=== PATIENT | female | born 1945 | race Caucasian/White ===

== ENCOUNTER → 2016-04-05 | Outpatient (CLI) | payer MEDICARE, OTHER ==
[~2016-04-05] MED LIST: ACHD5005 PO; AMLO10TA82 PO; AMLO1TAB15 PO; ASP81TEC PO; CLOP75TA PO; DOCU100T7 PO; ERGO400C PO; EZET10TA5 PO; FENO160T PO; FERR-57 PO; GBPN300C PO; LANS30TA4 PO; LISI30TA64 PO; RIVA20TA2 PO; TRM50T PO; VALS320T8 PO; VIVELLE DOT TD; [UNRECOGNIZED DRUG - OTHER] PO; aspirin PO
--- NOTE | 2016-04-05 13:22 | Diagnostic Imaging Report ---
PROCEDURE: US Thyroid. TECHNIQUE: Multiple real-time grayscale images were obtained of the thyroid in various projections. INDICATION: Secondary hyperparathyroidism. There are no previous thyroid ultrasound examinations available for comparison. Reportedly, the patient did undergo a surgical procedure involving the right lobe of the thyroid in 2011. FINDINGS: On this exam, there is thyroid tissue in the thyroid bed on the right. This area measures 3.3 x 0.8 x 1.1 cm (normal gland size 4-5 x 2 x 2 cm or less). The thyroid tissue in the right lobe is fairly homogeneous. The left lobe of the thyroid does contain multiple areas of diminished echogenicity. The largest of these is in the inferior pole and measures 1.5 x 1.2 x 0.9 cm. These hypoechoic areas are of uncertain etiology, but this appearance could be secondary to a multinodular goiter. The possibility that the largest hypoechoic area in the inferior pole is neoplastic would be unlikely. Even so, a nuclear medicine thyroid scan would be recommended for further study. The left lobe of the thyroid itself is not enlarged measuring 4.0 x 1.4 x 1.4 cm. IMPRESSION: 1. There are multiple hypoechoic lesions within the left lobe. These are nonspecific in appearance. These findings are more likely due to a multinodular goiter than to neoplasm. Even so, a nuclear medicine thyroid scan would be recommended for further evaluation of the 1.5 x 1.2 x 0.9 cm lesion in the inferior pole of the left lobe. 2. There does appear to be thyroid tissue in the bed of the right lobe. Correlation with the patient's surgical history would be recommended. Dictated by: Dictated on workstation # [id number]
== END ==
LOC: RAD 11:52
PROVIDERS: ATTEND Internal Medicine Endocrinology, Diabetes & Metabolism
DX: N25.81 Secondary hyperparathyroidism of renal origin (principal)
CPT/HCPCS: 76536

== ENCOUNTER → 2017-02-19 | Outpatient (CLI) | payer MEDICARE, OTHER ==
--- NOTE | 2017-02-19 15:15 | Diagnostic Imaging Report ---
EXAMINATION: Left lower extremity duplex venous ultrasound. TECHNIQUE: DVT protocol. Multiple sonographic images with color Doppler and waveform interrogation were performed of the left lower extremity veins with compression and augmentation maneuvers. INDICATION: Left leg pain. FINDINGS: The left lower extremity veins from the groin to below the knee veins were examined with normal color-flow, compressibility and waveform demonstrated. The great saphenous vein is patent. IMPRESSION: No evidence of DVT in the left lower extremity. Dictated by: Dictated on workstation # [id number]
== END ==
LOC: RAD 14:34
PROVIDERS: ATTEND Nurse Practitioner Family
DX: M79.605 Pain in left leg (principal)

== ENCOUNTER → 2017-04-11 | Outpatient (CLI) | payer MEDICARE, OTHER ==
[~2017-04-11] MED LIST changes: +LIDOCAINE 2% 20 ML (XYLOCAINE) VIAL ONE
--- NOTE | 2017-04-11 12:44 | Diagnostic Imaging Report ---
Indication: Left lower pole thyroid nodule. Patient presents for fine-needle aspiration. Patient was brought to the procedure room and placed on the bed in the supine position. Ultrasound imaging over the neck was performed to evaluate the appropriate entry site. A total of 3 passes were made into the hypoechoic mass in the lower pole of the left lobe of the thyroid with a 25-gauge needle. Fine-needle aspiration was performed and sent to cytology. Hemostasis was obtained using manual compression. The patient tolerated the procedure well. IMPRESSION: Successful ultrasound-guided fine-needle aspiration of the hypoechoic nodule in the lower pole of the left lobe of the thyroid. Pathology results are currently pending. Dictated by: Dictated on workstation # [id number]
--- NOTE | 2017-04-11 13:46 | Diagnostic Imaging Report ---
PROCEDURE: US Thyroid. TECHNIQUE: Multiple real-time grayscale images were obtained of the thyroid in various projections. INDICATION: Left thyroid nodule. COMPARISON: Comparison is made with prior thyroid ultrasound from 04/05/2016. FINDINGS: Postsurgical changes to the right lobe of the thyroid are noted. There is some residual thyroid tissue on the right measuring 2.3 x 0.8 x 1.1 cm. No mass is detected. The left lobe measures 4.8 x 2.2 x 1.4 cm. There is a hypoechoic nodule in the lower pole of the left lobe, similar to prior exam measuring 0.9 x 1.5 x 1.2 cm. No new thyroid mass is detected. No definite parathyroid mass is detected. IMPRESSION: Stable hypoechoic mass lower pole left lobe of the thyroid when compared with examination one year earlier. Dictated by: Dictated on workstation # [id number]
== END ==
LOC: RAD 09:44
PROVIDERS: ATTEND Surgery
DX: E04.1 Nontoxic single thyroid nodule (principal)
CPT/HCPCS: 76536; 76942

== ENCOUNTER 2017-04-27 14:00 | Outpatient (CLI) | payer MEDICARE, OTHER ==
[~2017-04-27] VITALS: Ht 144.8 cm; Wt 68.0 kg
[~2017-04-27 14:00] MED LIST changes: -LIDOCAINE 2% 20 ML (XYLOCAINE) VIAL ONE
[2017-04-27] MEDS ORDERED: GABA-486 PO (14:41)
[2017-04-27] MEDS ORDERED: FURO20TA4 PO (14:41)
[2017-04-27] MEDS ORDERED: PRD20T PO (14:41)
[2017-04-27] MEDS ORDERED: POTA10TA10 PO (14:41)
[2017-04-27] MEDS ORDERED: HYDR50TA76 PO (14:41)
[2017-04-27] MEDS ORDERED: DILT180C54 PO (14:41)
[2017-04-27] MEDS ORDERED: ASPI-999 PO (14:41)
[2017-04-27] MEDS ORDERED: LOSA100T28 PO (14:41)
[2017-04-27] MEDS ORDERED: DILT30TA PO (14:41)
[2017-04-27] MEDS ORDERED: BIOT5000 PO (14:41)
[2017-04-27] MEDS ORDERED: DOCU100T2 PO (14:41)
[2017-04-27] MEDS ORDERED: RIVA15TA PO (14:41)
[2017-04-27] MEDS ORDERED: OMEP20CA12 PO (14:41)
== END 2017-04-27 14:44 ==
LOC: PREOP 14:00
PROVIDERS: ATTEND Surgery
DX: Z01.818 Encounter for other preprocedural examination (principal); E04.1 Nontoxic single thyroid nodule

== ENCOUNTER 2017-05-02 06:17 | Observation (INO) | payer MEDICARE, OTHER ==
[~2017-05-02] VITALS: Ht 144.8 cm; Wt 68.0 kg
[2017-05-02] VITALS (17 sets, daily range): BP systolic 153–189; BP diastolic 72–92
[~2017-05-02 06:17] MED LIST changes: +ASPI-999 PO; +BIOT5000 PO; +DILT180C54 PO; +DILT30TA PO; +DOCU100T2 PO; +FURO20TA4 PO; +GABA-486 PO; +HYDR50TA76 PO; +LOSA100T28 PO; +OMEP20CA12 PO; +POTA10TA10 PO; +PRD20T PO; +RIVA15TA PO
--- OUTSIDE RECORDS SUMMARY | 2017-05-02 06:20 | XMS REPORT | Continuity of Care Document ---
Author Author [facility] Organization [facility] Address Unknown Phone Unavailable Allergies Active Description Code Type Severity Reaction Onset Reported/Identified Relationship to Patient Clinical Status Yes latex [id number] Drug Allergy Unknown RASH 07/09/2012 Yes Penicillins [id number] Drug Allergy Unknown RASH 07/09/2012 Yes codeine [id number] Drug Allergy Mild NAUSEA 07/18/2012 Medications There is no data. Problems Date Dx Coded Attending Type Code Diagnosis Diagnosed By 07/19/2012 CARLITA ROBERSON MD Ot 227.1 BENIGN GABINO PARATHYROID 07/19/2012 CARLITA ROBERSON MD Ot 252.01 PRIMARY HYPERPARATHYROIDISM 07/19/2012 CARLITA ROBERSON MD Ot 275.42 HYPERCALCEMIA 07/19/2012 CARLITA ROBERSON MD Ot 401.9 HYPERTENSION NOS 07/19/2012 CARLITA ROBERSON MD Ot V45.82 PERCUTANEOUS TRANSLUM CORON ANGIOPLASTY 07/19/2012 CARLITA ROBERSON MD Ot V45.89 POSTSURGICAL STATES NEC 07/19/2012 CARLITA ROBERSON MD Ot V58.66 LONG-TERM (CURRENT) USE OF ASPIRIN 07/19/2012 CARLITA ROBERSON MD Ot V58.69 OTH MED,LT,CURRENT USE 05/06/2014 STEPHANIE DOWLING MD Ot 733.00 01/04/2015 STEPHANIE DOWLING MD Ot M81.0 01/04/2015 STEPHANIE DOWLING MD Ot Z12.31 01/05/2015 Ot 793.82 01/05/2015 Ot V76.12 01/05/2015 Ot 252.00 01/05/2015 Ot 733.00 01/05/2015 Ot V49.81 01/05/2015 Ot V76.12 01/05/2015 Ot 733.00 01/05/2015 CARLITA ROBERSON MD Ot 784.2 01/05/2015 CARLITA ROBERSON MD Ot V72.63 01/05/2015 KAROL HENDRICKS, CARLITA Kaur Ot V74.8 01/05/2015 KAROL HENDRICKS, CARLITA Kaur Ot 252.9 01/05/2015 KAROL HENDRICKS, CARLITA Kaur Ot 780.79 01/05/2015 NITESH HENDRICKS, STEPHANIE A Ot 733.00 01/05/2015 NITESH HENDRICKS, STEPHANIE A Ot V76.12 01/05/2015 NEELAM MATTHEWSP Ot V76.12 01/05/2015 NITESH HENDRICKS, STEPHANIE A Ot 733.00 01/05/2015 NITESH HENDRICKS, STEPHANIE A Ot M81.0 01/05/2015 NITESH HENDRICKS, STEPHANIE A Ot Z12.31 01/26/2015 NIETSH HENDRICKS, STEPHANIE A Ot M81.0 01/26/2015 NITESH HENDRICKS, STEPHANIE A Ot Z12.31 02/03/2015 NITESH HENDRICKS, STEPHANIE A Ot M81.0 02/03/2015 NITESH HENDRICKS, STEPHANIE A Ot Z12.31 01/04/2016 Ot 793.82 INCONCLUSIVE MAMMOGRAM 01/04/2016 Ot V76.12 OTH SCREEN MAMMO-MALIGN NEOPLASM OF DALY 01/04/2016 Ot 252.00 HYPERPARATHYROIDISM, UNSPECIFIED 01/04/2016 Ot 733.00 OSTEOPOROSIS NOS 01/04/2016 Ot V49.81 ASYMPT POSTMENOPAUSAL STATUS (AGE-RELATE 01/04/2016 Ot V76.12 OTH SCREEN MAMMO-MALIGN NEOPLASM OF DALY 01/04/2016 Ot 733.00 OSTEOPOROSIS NOS 01/04/2016 KAROL HENDRICKS, CARLITA Kaur Ot 784.2 SWELLING IN HEAD NECK 01/04/2016 KAROL HENDRICKS, CARLITA Kaur Ot V72.63 PRE-PROCEDURAL LABORATORY EXAMINATION 01/04/2016 KAROL HENDRICKS, CARLITA Kaur Ot V74.8 SCREEN-BACTERIAL DIS NEC 01/04/2016 KAROL HENDRICKS, CARLITA Kaur Ot 252.9 PARATHYROID DISORDER NOS 01/04/2016 KAROL HENDRICKS, CARLITA Kaur Ot 780.79 OTH MALAISE FATIGUE 01/04/2016 NITESH HENDRICKS, STEPHANIE A Ot 733.00 OSTEOPOROSIS NOS 01/04/2016 NITESH HENDRICKS, STEPHANIE A Ot V76.12 OTH SCREEN MAMMO-MALIGN NEOPLASM OF DALY 01/04/2016 MATTHEWS, NEELAM M EDUCATIONAL INTERPRETER Ot V76.12 OTH SCREEN MAMMO-MALIGN NEOPLASM OF DALY 01/04/2016 NITESH HNEDRICKS, STEPHANIE Saucedo Ot 733.00 OSTEOPOROSIS NOS 01/04/2016 NITESH HENDRICKS, STEPHANIE Saucedo Ot M81.0 AGE-RELATED OSTEOPOROSIS W/O CURRENT PAT 01/04/2016 STEPHANIE DOWLING MD Ot Z12.31 ENCNTR SCREEN MAMMOGRAM FOR MALIGNANT NE 01/04/2016 NEELAM MATTHEWS EDUCATIONAL INTERPRETER Ot Z12.31 ENCNTR SCREEN MAMMOGRAM FOR MALIGNANT NE 01/04/2016 NEELAM MATTHEWS EDUCATIONAL INTERPRETER Ot Z12.31 ENCNTR SCREEN MAMMOGRAM FOR MALIGNANT NE 01/05/2016 NEELAM MATTHEWS EDUCATIONAL INTERPRETER Ot Z12.31 ENCNTR SCREEN MAMMOGRAM FOR MALIGNANT NE 01/06/2016 NEELAM MATTHEWS EDUCATIONAL INTERPRETER Ot M81.0 AGE-RELATED OSTEOPOROSIS W/O CURRENT PAT 01/18/2016 NEELAM MATTHEWS EDUCATIONAL INTERPRETER Ot Z12.31 ENCNTR SCREEN MAMMOGRAM FOR MALIGNANT NE 01/27/2016 NEELAM MATTHEWS EDUCATIONAL INTERPRETER Ot M81.0 AGE-RELATED OSTEOPOROSIS W/O CURRENT PAT 02/01/2016 NEELAM MATTHEWS EDUCATIONAL INTERPRETER Ot M81.0 AGE-RELATED OSTEOPOROSIS W/O CURRENT PAT 04/05/2016 HERNANDEZ DO, JOSE EDUARDO L Ot N25.81 SECONDARY HYPERPARATHYROIDISM OF RENAL O 04/07/2016 HERNANDEZ DO, JOSE EDUARDO L Ot N25.81 SECONDARY HYPERPARATHYROIDISM OF RENAL O 04/26/2016 HERNANDEZ DO, JOSE EDUARDO L Ot N25.81 SECONDARY HYPERPARATHYROIDISM OF RENAL O 05/03/2016 HERNANDEZ DO, JOSE EDUARDO L Ot N25.81 SECONDARY HYPERPARATHYROIDISM OF RENAL O 01/15/2017 Ot 733.00 OSTEOPOROSIS NOS 01/15/2017 Ot V49.81 ASYMPT POSTMENOPAUSAL STATUS (AGE-RELATE 01/15/2017 Ot V76.12 OTH SCREEN MAMMO-MALIGN NEOPLASM OF DALY 01/15/2017 Ot 733.00 OSTEOPOROSIS NOS 01/15/2017 KAROL HENDRICKS, CARLITA Kaur Ot 784.2 SWELLING IN HEAD NECK 01/15/2017 KAROL HENDRICKS, CARLITA Kaur Ot V72.63 PRE-PROCEDURAL LABORATORY EXAMINATION 01/15/2017 KAROL HENDRICKS, CARLITA Kaur Ot V74.8 SCREEN-BACTERIAL DIS NEC 01/15/2017 KAROL HENDRICKS, CARLITA Kaur Ot 252.9 PARATHYROID DISORDER NOS 01/15/2017 KAROL HENDRICKS, CARLITA Kaur Ot 780.79 OTH MALAISE FATIGUE 01/15/2017 NITESH HENDRICKS, STEPHANIE Saucedo Ot 733.00 OSTEOPOROSIS NOS 01/15/2017 STEPHANIE DOWLING MD Ot V76.12 OTH SCREEN MAMMO-MALIGN NEOPLASM OF DALY 01/15/2017 NEELAM MATTHEWSP Ot V76.12 OTH SCREEN MAMMO-MALIGN NEOPLASM OF DALY 01/15/2017 STEPHANIE DOWLING MD Ot 733.00 OSTEOPOROSIS NOS 01/15/2017 NITESH HENDRICKS, STEPHANIE Saucedo Ot M81.0 AGE-RELATED OSTEOPOROSIS W/O CURRENT PAT 01/15/2017 STEPHANIE DOWLING MD Ot Z12.31 ENCNTR SCREEN MAMMOGRAM FOR MALIGNANT NE 01/15/2017 NEELAM MATTHEWSP Ot M81.0 AGE-RELATED OSTEOPOROSIS W/O CURRENT PAT 01/15/2017 NEELAM MATTHEWS EDUCATIONAL INTERPRETER Ot Z12.31 ENCNTR SCREEN MAMMOGRAM FOR MALIGNANT NE 01/15/2017 JOSE EDUARDO HERNANDEZ DO Ot N25.81 SECONDARY HYPERPARATHYROIDISM OF RENAL O 01/16/2017 ARNAV ZAVALA CARPENTERS Ot Z12.31 ENCNTR SCREEN MAMMOGRAM FOR MALIGNANT NE 02/06/2017 ARNAV ZAVALA CARPENTERS Ot Z12.31 ENCNTR SCREEN MAMMOGRAM FOR MALIGNANT NE 02/25/2017 NEELAM MATTHEWS EDUCATIONAL INTERPRETER Ot M79.605 PAIN IN LEFT LEG 03/14/2017 NEELAM MATTHEWS EDUCATIONAL INTERPRETER Ot M79.605 PAIN IN LEFT LEG 03/20/2017 NEELAM MATTHEWS EDUCATIONAL INTERPRETER Ot M79.605 PAIN IN LEFT LEG 04/12/2017 KAROL HENDRICKS, CARLITA Kaur Ot E04.1 NONTOXIC SINGLE THYROID NODULE Procedures Code Description Performed By Performed On OTHER PARATHYROIDECTOMY 07/17/2012 Results There is no data. Encounters ACCT No. Visit Date/Time Discharge Status Pt. Type Provider Facility Loc./Unit Complaint [id number] 04/11/2017 09:44:00 04/11/2017 23:59:59 CLS Outpatient CARLITA ROBERSON MD [facility] RAD LEFT THYROID NODULE [id number] 03/02/2017 12:11:00 03/02/2017 23:59:59 CLS Preadmit JOSE EDUARDO HERNANDEZ DO [facility] RAD VITAMIN D DEFICIECY [id number] 02/19/2017 14:34:00 02/19/2017 23:59:59 CLS Outpatient NEELAM MATTHEWS EDUCATIONAL INTERPRETER [facility] RAD L CALF PAIN, SWELLING [id number] 01/15/2017 14:38:00 01/15/2017 23:59:59 CLS Outpatient ARNAV ZAVALA APRN [facility] RAD SCREENING [id number] 04/05/2016 11:52:00 04/05/2016 23:59:59 CLS Outpatient JOSE EDUARDO HERNANDEZ DO [facility] RAD SECONDARY HYPERPARATHYROIDISM [id number] 01/04/2016 12:22:00 01/04/2016 23:59:59 CLS Outpatient NEELAM MATTHEWS EDUCATIONAL INTERPRETER [facility] RAD SCREENING [id number] 01/04/2016 12:15:00 01/04/2016 23:59:59 CLS Outpatient NEELAM MATTHEWS EDUCATIONAL INTERPRETER [facility] M81.0 [id number] 12/31/2014 11:18:00 12/31/2014 23:59:59 CLS Outpatient STEPHANIE DOWLING MD [facility] RAD SCREENING, OSTEOPOROSIS [id number] 01/07/2014 13:07:00 01/07/2014 23:59:59 CLS Outpatient STEPHANIE DOWLING MD [facility] OSTEOPOROSIS [id number] 12/23/2013 11:05:00 12/23/2013 23:59:59 CLS Outpatient NEELAM MATTHEWS EDUCATIONAL INTERPRETER [facility] RAD SCREENING [id number] 11/15/2012 12:09:00 11/15/2012 23:59:59 CLS Outpatient STEPHANIE DOWLING MD [facility] OSTEOPOROSIS, SCREENING [id number] 07/30/2012 17:09:00 07/30/2012 23:59:59 CLS Outpatient CARLITA ROBERSON MD [facility] LAB PARATHYROID,FATIGUE [id number] 07/17/2012 06:10:00 07/19/2012 10:25:00 DIS Inpatient CARLITA ROBERSON MD [facility] SURGICAL ENLARGED PARATHYROID [id number] 07/09/2012 08:53:00 07/09/2012 23:59:59 CLS Outpatient CARLITA ROBERSON MD [facility] PREOP ENLARGED PARATHYOID [id number] 10/30/2011 13:10:00 Document Registration [id number] 10/13/2011 10:15:00 Document Registration [id number] 06/27/2011 08:23:00 Document Registration [id number] 08/30/2010 09:19:00 Document Registration
[2017-05-02] MEDS ORDERED: VANCOMYCIN INJECTION 1,000 MG in NS (IVPB) 250 ML IV ONE (06:30)
[2017-05-02] MEDS ORDERED: CATHETER FLUSH 10 ML SYR IV PRN (06:45)
[2017-05-02] MEDS ORDERED: proPOfol 200 MG/20 ML (DIPRIVAN) VIAL IV ONE (06:51)
[2017-05-02] MEDS ORDERED: LIDOCAINE PF 2% 5 ML (XYLOCAINE) VIAL ONE (06:51)
[2017-05-02] MEDS ORDERED: ONDANSETRON 4 MG/2 ML (SDV) Z0FRAN ONE (06:51)
[2017-05-02] MEDS ORDERED: DEXAMETHASONE 10 MG/ML (DECADRON) 1 ML VIAL ONE (06:51)
[2017-05-02] MEDS ORDERED: SUCCINYLCHOLINE INJ 100 MG/5 ML SYR ONE (06:51)
[2017-05-02] MEDS ORDERED: fentaNYL INJECTION 100 MCG/2 ML AMP ONE (06:52)
[2017-05-02] MEDS ORDERED: MIDAZOLAM 2 MG/2 ML (VERSED) VIAL ONE (06:52)
[2017-05-02] MEDS ORDERED: FAMOTIDINE 20MG/2ML IV (PEPCID) IV ONE (07:00)
[2017-05-02] MEDS ORDERED: SCOPOLAMINE 1.5 MG (TRANSDERM-SCOP) PATCH TOP ONE (07:00)
[2017-05-02] MEDS ORDERED: ONDANSETRON 4 MG/2 ML (SDV) Z0FRAN IV ONE (07:00)
[2017-05-02] MEDS ORDERED: BUP/EPI 0.5% 1:200,000 (SENSORCAINE) 30 ML VIAL ONE (07:12)
[2017-05-02] MEDS ORDERED: THROMBIN SPRAY KIT 5,000 UNIT VIAL ONE (07:12)
[2017-05-02] MEDS: LACTATED RINGERS 1,000 ML IV PRN ×2 (07:15→09:53)
--- NOTE | 2017-05-02 08:09 | Progress Note-Pre Operative ---
Pre-Operative Progress Note H&P Reviewed The H&P was reviewed, patient examined and no changes noted. 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
[2017-05-02] MEDS ORDERED: ONDANSETRON 4 MG/2 ML (SDV) Z0FRAN IVP PRN ×2 (09:15→11:00)
[2017-05-02] MEDS ORDERED: MEPERIDINE (DEMEROL) INJ 50 MG/ML IVP PRN (09:15)
[2017-05-02] MEDS ORDERED: morphine INJ 10 MG/ML 1ML (SYR OR VIAL) IVP PRN (09:15)
[2017-05-02] MEDS ORDERED: morphine INJ 10 MG/ML 1ML (SYR OR VIAL) ONE (09:16)
[2017-05-02] MEDS ORDERED: SEVOFLURANE (ULTANE) 15 ML INHAL SOLN ONE ×2 (10:13→10:28)
--- NOTE | 2017-05-02 10:46 | Operative Report ---
Operative Report Date of Procedure/Surgery May 02, 2017 Surgeon (s) CARLITA ROBERSON MD Train Brake Operator (s): N/A Post-Operative Diagnosis Atypical parathyroid neoplasm Procedure Performed Left hemithyroidectomy with frozen section analysis Excision of left inferior parathyroid adenoma Intraoperative nerve monitoring Description of Procedure Anesthesia Type: General Estimated blood loss (mL): 25 mL Specimen(s) collected/removed Left lobe of thyroid with a nodule. Left inferior parathyroid Description of the Procedure Indication for the procedure: This lady had undergone excision of a solitary right parathyroid adenoma in 2012. Completion of the excision was confirmed by intraoperative PTH assay. She presented with severe hypercalcemia and mental's status changes 2 months ago. Following adjustment of her medications and intravenous fluids, her calcium has normalized. During to get evaluation, a 1.5 cm left parotid nodule became apparent. Fine-needle aspiration confirmed a follicular neoplasm. Therefore, she was offered hemithyroidectomy to establish a definitive diagnosis. The potential for finding and that the parathyroid adenoma on the left side, leading to excision was highlighted. With regard to the operative procedure, expected recovery, intraoperative complications of hematoma, hoarseness of voice and severe hypocalcemia were discussed with her. Informed consent was obtained. Description of the procedure: She was placed supine on the operating table and general anesthesia induced. A gram of Ancef was administered intravenously as prophylaxis against wound infection sequential compression devices were placed around her legs, to minimize the risk of venous thrombosis. Her neck and upper chest were prepared and draped in the usual sterile manner. Pre-emptive analgesia was established using 0.5 percent Marcaine with epinephrine. A 3 cm incision was made along the previous scar and platysma incised transversely. Flaps were raised superiorly to the level of the thyroid cartilage and inferiorly to the sternal notch. Strap muscles were retracted laterally, displaying the left lobe of the thyroid with a hard nodule along the inferior aspect, medially. Superior thyroid artery was controlled between 2-0 silk sutures, reinforced with a Ligaclip. Branches of the inferior thyroid artery were controlled using a combination and ligated clips and Harmonic scalpel. The recurrent laryngeal nerve was identified and kept out of harm's way by constant visual inspection and intermittent stimulation using standard technique. As this process underway, and abnormal-looking parathyroid tissue possibly inferior in location came into view. It measured at least 7 mm in size and therefore was excised and sent for frozen section. The pathologist confirmed parathyroid tissue, requiring additional histologic evaluation. The isthmus was divided using Harmonic scalpel. I was able to identify and preserve what appeared to be left superior parathyroid tissue and preserve its blood supply. Left lobe was then excised completely and sent for frozen section. The pathologist reported atypical parathyroid tissue within the nodule along the inferior aspect of the thyroid lobe. 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 Hemostasis was optimized using careful use of ligated clips, keeping the recurrent laryngeal nerve in view constantly. We had the DEVELOPER AUTOMATIC conduct Valsalva maneuver, looking for any venous bleeding. There wasn't any. Gelfoam, soaked in thrombin solution was placed along the tracheo-esophageal groove, to optimize hemostasis. Neck was then flexed, in preparation for closure. Cervical fascia was approximated using 2-0 Vicryl followed by platysma being approximated with 3-0 Vicryl. Skin was closed using 4-0 Vicryl, in a subcuticular fashion. She tolerated the procedure well, was extubated in the operating room and taken to the recovery room in a stable condition. Findings of the Procedure See op report Allergies and Home Medications Allergies Coded Allergies: Penicillins (Unverified Allergy, Unknown, RASH, 04/27/17) cinacalcet (Verified Allergy, Unknown, ANAPHYLAXIS, 04/27/17) latex (Unverified Allergy, Unknown, RASH, 04/27/17) ITCHY codeine (Unverified Adverse Reaction, Mild, NAUSEA, 07/18/12) Home Medications Aspirin 81 Mg Tab.chew, 81 MG PO DAILY, (Reported) Biotin 5,000 Mcg Tab.rapdis, 5,000 MCG PO DAILY, (Reported) Diltiazem HCl 30 Mg Tablet, 30 MG PO HS, (Reported) Diltiazem HCl 180 Mg Cap.er.24h, 180 MG PO DAILY, (Reported) Docusate Sodium 100 Mg Tablet, 200 MG PO DAILY, (Reported) take 2 (100mg) tabs Furosemide 20 Mg Tablet, 20 MG PO DAILY, (Reported) Gabapentin 100 Mg Capsule, 100 MG PO BID, (Reported) Hydroxyzine HCl 50 Mg Tablet, 50 MG PO BID, (Reported) Losartan Potassium 100 Mg Tablet, 100 MG PO DAILY, (Reported) Omeprazole 20 Mg Capsule.dr, 20 MG PO BID, (Reported) Potassium Chloride 10 Meq Tablet.er, 10 MEQ PO DAILY, (Reported) Prednisone 20 Mg Tab, 20 MG PO BID for 5 Days, (Reported) Rivaroxaban 15 Mg Tablet, 15 MG PO DAILY, (Reported) CARLITA ROBERSON MD May 02, 2017 10:46 am
[2017-05-02] MEDS ORDERED: LACTATED RINGERS 1,000 ML IV SCH (10:47)
[2017-05-02] MEDS ORDERED: fentaNYL INJECTION 100 MCG/2 ML AMP IVP PRN (11:00)
[2017-05-02] MEDS ORDERED: HYDROcodone/APAP 5 MG/325 MG (LORTAB) TAB PO PRN (11:00)
[2017-05-02] MEDS ORDERED: ENALAPRILAT 2.5 MG/2 ML (VASOTEC) VIAL IV PRN (13:15)
[2017-05-02] MEDS ORDERED: DILTIAZEM 180 MG (CARDIZEM CD) CAP PO ONE (17:21)
[2017-05-02] MEDS ORDERED: LOSARTAN 100 MG (COZAAR) TABLET ONE (17:21)
[2017-05-02] MEDS ORDERED: ENALAPRILAT 2.5 MG/2 ML (VASOTEC) VIAL IV NR (17:30)
[2017-05-02] MEDS: predniSONE 20 MG TAB PO SCH (17:32)
[2017-05-02] MEDS: LOSARTAN 100 MG (COZAAR) TABLET PO SCH (17:32)
[2017-05-02] MEDS: DILTIAZEM 180 MG (CARDIZEM CD) CAP PO SCH (17:32)
[2017-05-02] MEDS: GABAPENTIN 100 MG (NEURONTIN) CAP PO SCH (20:15)
[2017-05-02] MEDS: DILTIAZEM 30 MG (CARDIZEM) TAB PO SCH (20:15)
[2017-05-03] VITALS (10 sets, daily range): BP systolic 131–167; BP diastolic 59–77
[2017-05-03 03:48] LABS: CALCIUM 8.8 MG/DL (8.5-10.1); CREATININE SERUM 0.99 MG/DL (0.60-1.30); POTASSIUM 4.6 MMOL/L (3.6-5.0)
[2017-05-03] MEDS: predniSONE 20 MG TAB PO SCH ×2 (06:42→17:08)
--- NOTE | 2017-05-03 08:13 | Consultation ---
History of Present Illness History of Present Illness Patient Consulted On(ladi/time) 05/03/17 08:06 Date Seen by Provider: May 03, 2017 Time Seen by Provider: 08:06 Reason for Visit: PARATHYROID TUMOR History of Present Illness PT IS A 72 Y/O FEMALE WHO IS KNOWN TO ME FROM CLINIC. SHE HAS A REMOTE HISTORY OF PARATHYROID TUMOR WITH REMOVAL OF THE AFFECTED PARATHYROIDS. UPON USUAL LAB MONITORING, IT WAS DISCOVERED THAT HER PARATHYROID HORMONE LEVELS HAVE BEEN ELEVATED, IMAGING WAS PERFORMED AND PT WAS REFERRED TO DR. ROBERSON FOR FURTHER EVALUATION, A BIOPSY OF ENSUED AND IT WAS DISCOVERED THAT THE PT HAD A POSSIBLE FOLLICULAR NEOPLASM, THUS SURGICAL REMOVAL WAS PLANNED FOR 05/02/17. Allergies and Home Medications Allergies Coded Allergies: Penicillins (Unverified Allergy, Unknown, RASH, 04/27/17) cinacalcet (Verified Allergy, Unknown, ANAPHYLAXIS, 04/27/17) latex (Unverified Allergy, Unknown, RASH, 04/27/17) ITCHY codeine (Unverified Adverse Reaction, Mild, NAUSEA, 07/18/12) Home Medications Aspirin 81 Mg Tab.chew, 81 MG PO DAILY, (Reported) Biotin 5,000 Mcg Tab.rapdis, 5,000 MCG PO DAILY, (Reported) Diltiazem HCl 30 Mg Tablet, 30 MG PO HS, (Reported) Diltiazem HCl 180 Mg Cap.er.24h, 180 MG PO DAILY, (Reported) Docusate Sodium 100 Mg Tablet, 200 MG PO DAILY, (Reported) take 2 (100mg) tabs Furosemide 20 Mg Tablet, 20 MG PO DAILY, (Reported) Gabapentin 100 Mg Capsule, 100 MG PO BID, (Reported) Hydroxyzine HCl 50 Mg Tablet, 50 MG PO BID, (Reported) Losartan Potassium 100 Mg Tablet, 100 MG PO DAILY, (Reported) Omeprazole 20 Mg Capsule.dr, 20 MG PO BID, (Reported) Potassium Chloride 10 Meq Tablet.er, 10 MEQ PO DAILY, (Reported) Prednisone 20 Mg Tab, 20 MG PO BID for 5 Days, (Reported) Rivaroxaban 15 Mg Tablet, 15 MG PO DAILY, (Reported) Past Gfoqzpx-Hlppvs-Jpbalt Hx Patient Social History Alcohol Use: Denies Use Recreational Drug Use: No Smoking Status: Never a Smoker 2nd Hand Smoke Exposure: No Recent Foreign Travel: No Contact w/Someone Who Travel: No Recent Infectious Disease Expo: No Recent Hopitalizations: No Physical Abuse: No Sexual Abuse: No Mistreated: No Fear: No Immunizations Up To Date Tetanus Booster (TDap): Unknown PED Vaccines UTD: No Seasonal Allergies Seasonal Allergies: No Surgeries History of Surgeries: Yes Surgeries: Appendectomy, Section, Coronary Stent, Parathyroidectomy Respiratory History of Respiratory Disorde: Yes Respiratory Disorders: Pneumonia, COPD Currently Using CPAP: No Currently Using BIPAP: No Cardiovascular History of Cardiac Disorders: Yes Cardiac Disorders: Coronary Artery Disease, Hypertension Neurological History of Neurological Disord: No Reproductive System : No Hx Reproductive Disorders: No Sexually Transmitted Disease: No HIV/AIDS: No Female Reproductive Disorders: Denies [employer] History: Menopausal Genitourinary History of Genitourinary Disor: No Gastrointestinal History of Gastrointestinal Di: Yes Gastrointestinal Disorders: Gastroesophageal Reflux Musculoskeletal History of Musculoskeletal Dis: Yes Musculoskeletal Disorders: Osteoporosis, Arthritis, Fractures Endocrine History of Endocrine Disorders: Yes Endocrine Disorders: Parathyroid Disease Are Your Blood Sugars Over 250: No HEENT History of HEENT Disorders: Yes HEENT Disorders: Cataract Loss of Vision: Denies Hearing Impairment: Denies Psychosocial History of Psychiatric Problem: Yes Behavioral Health Disorders: Depression Integumentary History of Skin or Integumenta: No Blood Transfusions History of Blood Disorders: No Adverse Reaction to a Blood Tr: No Reviewed Nursing Assessment Reviewed/Agree w Nursing PMH: Yes Family Medical History Significant Family History: Heart Disease, Hypertension Review of Systems-General Constitutional: No chills, No fever, malaise, No weakness EENTM: No hoarseness, No throat pain Respiratory: No cough, No dyspnea on exertion Cardiovascular: No chest pain, edema, No palpitations Gastrointestinal: No abdominal pain, No constipation, No diarrhea, No loss of appetite Genitourinary: no symptoms reported : No Musculoskeletal: back pain, muscle weakness Skin: no symptoms reported Psychiatric/Neurological: Denies Anxiety, Denies Depressed All Other Systems Reviewed Negative Unless Noted: Yes Physical Exam-General Problems Physical Exam Vital Signs Vital Signs - First Documented 05/02/17 06:40 Temp 98.5 Pulse 76 Resp 18 B/P (MAP) 186/79 (114) Pulse Ox 94 O2 Delivery Room Air Capillary Refill : General Appearance: WD/WN, no apparent distress Eyes: Bilateral Eye Normal Inspection, Bilateral Eye PERRL, Bilateral Eye EOMI HEENT: PERRL/EOMI, normal ENT inspection, TMs normal, pharynx normal Neck: non-tender, supple, other (surgical incision steri strips in place) Respiratory: chest non-tender, lungs clear, normal breath sounds, no respiratory distress, no accessory muscle use Cardiovascular: regular rate, rhythm, systolic murmur Gastrointestinal: normal bowel sounds, non tender, soft, no organomegaly Back: normal inspection Extremities: normal range of motion, non-tender, normal inspection, normal capillary refill Neurologic/Psychiatric: retanner II-XII nml as tested, alert, normal mood/affect, oriented x 3 Skin: warm/dry Assessment/Plan Assessment/Plan Admission Diagnosis/Plan PARATHYROID TUMOR HYPERTENSION CHRONIC STAGE 3 RENAL FAILURE ESOPHAGEAL REFLUX HX OF [place] FILTER CHRONIC ANTICOAGULATION PARATHYROID TUMOR - POST OP PARATHYROIDECTOMY DAY #1 HYPERTENSION - CHRONIC - RESTART HOME MEDICATION - PT HAS BEEN VERY DIFFICULT TO TREAT DUE TO INTOLERANCE OR POOR RESPONSE TO DIFFERENT ANTI-HYPERTENSIVE MEDICATIONS CHRONIC STAGE 3 RENAL FAILURE - MONITOR CREATININE, RENAL ADJUSTMENT OF MEDICATIONS ESOPHAGEAL REFLUX - RESTART PPI CHRONIC ANTICOAGULATION AND HX OF [place] FILTER - PT ON XARELTO AT HOME - RESTART STEPHANIE DOWLING MD May 03, 2017 08:13
[2017-05-03] MEDS: GABAPENTIN 100 MG (NEURONTIN) CAP PO SCH ×2 (08:56→20:45)
[2017-05-03] MEDS: DILTIAZEM 180 MG (CARDIZEM CD) CAP PO SCH (08:56)
[2017-05-03] MEDS: LOSARTAN 100 MG (COZAAR) TABLET PO SCH (08:56)
[2017-05-03] MEDS: FUROSEMIDE 20 MG (LASIX) TAB PO SCH (08:57)
[2017-05-03] MEDS: ENOXAPARIN 40 MG/0.4 ML (LOVENOX) SYR SC SCH (09:29)
[2017-05-03] MEDS ORDERED: INFLUENZA TRIvalent 2017-2018 0.5 ML/45 MCG SYR IM ONE (11:30)
--- NOTE | 2017-05-03 11:31 | Progress Note-Standard ---
Standard Progress Note Progress Notes/Assess & Plan Date Seen by Provider: May 03, 2017 Time Seen by Provider: 09:25 Progress/Assessment & Plan Uneventful postoperative recovery. Vocal cord function intact. Calcium returned to normal. Incision dry. Poor cough efforts and feeling fatigued. Would benefit from an extra day in the hospital. Could be transferred to the floor. Final Diagnosis Left thyroid nodule. Parathyroid adenoma. CARLITA ROBERSON MD May 03, 2017 11:31
--- NOTE | 2017-05-03 11:33 | Physical Therapy Evaluation ---
PT Evaluation-General Medical Diagnosis Admission Date 2017 Medical Diagnosis: parathyroid tumor Onset Date: May 02, 2017 Therapy Diagnosis Therapy Diagnosis: debility Height/Weight Height (Feet): 4 Height (Inches): 9.00 Weight (Pounds): 150 Weight (Ounces): 0.0 Precautions Precautions/Isolations: Standard Precautions Weight Bear Status Right Lower Extremity: Right Full Weight Bearing Left Lower Extremity: Left Full Weight Bearing Referral Physician: Jerri Reason for Referral: Evaluation/Treatment Medical History Pertinent Medical History: Arthritis, CAD, COPD, HTN, Renal Insufficiency Current History s/p parathyroid tumor removal Reviewed History: Yes Social History Home: Apartment Current Living Status: Spouse Entry Into Home: Level Entry Prior/Core FIM Prior Level of Function Functional Armstrong Measure 0=Not Assessed/NA 4=Minimal Assistance 1=Total Assistance 5=Supervision or Setup 2=Maximal Assistance 6=Modified Armstrong 3=Moderate Assistance 7=Complete Armstrong Bed Mobility: 6 Transfers (B,C,W/C) (FIM): 6 Gait: 6 PT Evaluation-Current Subjective Patient is very agreeable to participate with PT. Pain Numeric Pain Scale: 0-No Pain Location: No Pain Reported Objective Patient Orientation: Normal For Age Problem Solving: Good ROM/Strength ROM Lower Extremities bilateral LE WNL Strength Lower Extremities 4/5 grossly bilateral LE's Integumentary/Posture Integumentary refer to nursing notes Bowel Incontinence: No Bladder Incontinence: No Posture WNL Neuromuscular (Tone, Coordination, Reflexes) grossly intact Sensory Vision: Functional Hearing: Functional Sensation Right Lower Extremit: Intact Sensation Left Lower Extremity: Intact Transfers Functional Armstrong Measure 0=Not Assessed/NA 4=Minimal Assistance 1=Total Assistance 5=Supervision or Setup 2=Maximal Assistance 6=Modified Armstrong 3=Moderate Assistance 7=Complete Armstrong Transfers (B, C, W/C) (FIM): 6 Scootin Supine to/from Sit: 6 Sit to/from Stand: 6 Gait Mode of Locomotion: Walk Anticipated Mode of Locomotion: Walk Gait (FIM): 6 Distance (FIM): 3=150 ft Distance: 300' Gait Level of Assist: 6 Gait Assistive Device: FWW Comments/Gait Description steady, functional, safe gait sequence Balance Sitting Static: Normal Sitting Dynamic: Normal Standing Static: Normal Standing Dynamic: Normal Assessment/Needs 72 y.o. female, is currently at [facility] with all gross motor skills and does not requires skilled PT intervention. PT instructed patient and spouse to ambulate PRN in hallway. Both voice understanding. Rehab Potential: Good PT Plan Treatment/Plan Treatment Plan: Discontinue PT, goals met Treatment Plan: Other Treatment Duration: May 03, 2017 Frequency: 1 time per week Estimated Hrs Per Day: .25 hour per day Patient and/or Family Agrees t: Yes Time/GCodes Time In: 1100 Time Out: 1116 Total Billed Treatment Time: 16 Total Billed Treatment 1 visit EVLowC 16 min PT/OT Therapy GCodes Therapy Functional Limitation: Physical Therapy Test(s)/Tool used to determine: Level of Assistance Scale Functional Limitation-Current Charge Code: MOBCUR Modifier: CI Functional Limitation-Goal Charge Code: MOBGOAL Modifier: CI Functional Limitation-D/C Charge Codes: MOBDC Modifier: CI BINDU WOODWARD PT May 03, 2017 11:33
--- NOTE | 2017-05-03 14:06 | Anesthesia-General Post-Op ---
General Patient Condition Mental Status/LOC: Same as Preop Cardiovascular: Satisfactory Nausea/Vomiting: Absent Respiratory: Satisfactory Pain: Controlled Complications: Absent Post Op Complications Complications None Follow Up Care/Instructions Patient Instructions None needed. Anesthesia/Patient Condition Patient Condition Patient is doing well, no complaints, stable vital signs, no apparent adverse anesthesia problems. No complications reported per nursing. VERNON BOTELLO CRNA May 03, 2017 14:06
[2017-05-03] MEDS: DILTIAZEM 30 MG (CARDIZEM) TAB PO SCH (20:46)
[2017-05-04 00:10] VITALS: BP 170/69
[2017-05-04 03:53] VITALS: BP 142/65
[2017-05-04 06:11] LABS: HEMOGLOBIN 9.2 G/DL (11.5-16.0); MEAN PLATELET VOLUME 10.3 FL (7.4-10.4); RED CELL DISTRIBUTION WIDTH 13.3 % (10.0-14.5); WHITE BLOOD COUNT 9.1 10^3/uL (4.3-11.0)
[2017-05-04 06:32] LABS: ALBUMIN 3.1 GM/DL (3.2-4.5); BILIRUBIN,TOTAL 0.4 MG/DL (0.1-1.0); CALCIUM 8.3 MG/DL (8.5-10.1); CREATININE SERUM 1.16 MG/DL (0.60-1.30); TOTAL PROTEIN 5.8 GM/DL (6.4-8.2)
[2017-05-04] MEDS: predniSONE 20 MG TAB PO SCH (06:44)
[2017-05-04 08:00] VITALS: BP 176/80
[2017-05-04] MEDS: DILTIAZEM 180 MG (CARDIZEM CD) CAP PO SCH (08:55)
[2017-05-04] MEDS: LOSARTAN 100 MG (COZAAR) TABLET PO SCH (08:55)
[2017-05-04] MEDS: FUROSEMIDE 20 MG (LASIX) TAB PO SCH (08:55)
[2017-05-04] MEDS: GABAPENTIN 100 MG (NEURONTIN) CAP PO SCH (08:55)
[2017-05-04] MEDS: ENOXAPARIN 40 MG/0.4 ML (LOVENOX) SYR SC SCH (09:00)
[2017-05-04 11:25] VITALS: BP 176/80
--- NOTE | 2017-05-04 12:23 | Progress Note-Standard ---
Standard Progress Note Progress Notes/Assess & Plan Date Seen by Provider: May 04, 2017 Time Seen by Provider: 10:05 Progress/Assessment & Plan Uneventful postoperative recovery. Vocal cord function intact. Calcium returned to normal. Incision dry. Poor cough efforts and feeling fatigued. Would benefit from an extra day in the hospital. Could be transferred to the floor. calcium normal. Ambulating better. Required oxygen overnight but currently maintaining saturations without supplemental oxygen. Could be discharged home. 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
== END 2017-05-04 11:10 | disposition home or self-care (01) ==
LOC: SDC 06:17 → ICU 12:03 → 4TH 05-03 10:50 → SDC 05-03 16:05 → 4TH 05-03 16:05
PROVIDERS: ADMIT Surgery; ATTEND Surgery
DX: D35.1 Benign neoplasm of parathyroid gland (principal); Z88.0 Allergy status to penicillin; Z88.5 Allergy status to narcotic agent; Z88.8 Allergy status to other drugs, medicaments and biological substances; E04.1 Nontoxic single thyroid nodule; I10 Essential (primary) hypertension; I25.10 Atherosclerotic heart disease of native coronary artery without angina pectoris; Z95.5 Presence of coronary angioplasty implant and graft; Z86.718 Personal history of other venous thrombosis and embolism; J44.9 Chronic obstructive pulmonary disease, unspecified; K21.9 Gastro-esophageal reflux disease without esophagitis; Z85.828 Personal history of other malignant neoplasm of skin; Z79.82 Long term (current) use of aspirin; Z79.899 Other long term (current) drug therapy; Z11.2 Encounter for screening for other bacterial diseases
CPT/HCPCS: 36415; 80048; 80053; 83735; 85027; 87081; 94664; 99211; G0378

== ENCOUNTER 2017-05-11 15:26 | Outpatient (RCR) | payer MEDICARE, OTHER ==
[~2017-05-11] VITALS: Ht 144.8 cm; Wt 68.0 kg
[2017-05-11] MEDS ORDERED: ONDANSETRON 4 MG/2 ML (SDV) Z0FRAN IV PRN (15:45)
[2017-05-11] MEDS ORDERED: NS IV 1000 ML 1,000 ML IV ONE (15:45)
[2017-05-11 16:17] LABS: BASOPHILS % (AUTO) 0 % (0-10); EOSINOPHILS # (AUTO) 0.2 10^3/uL (0.0-0.3); EOSINOPHILS % (AUTO) 2 % (0-10); HEMATOCRIT 37 % (35-52); HEMOGLOBIN 11.9 G/DL (11.5-16.0); LYMPHOCYTES # (AUTO) 1.2 X 10^3 (1.0-4.0); LYMPHOCYTES % (AUTO) 13 % (12-44); MEAN CORPUSCULAR HEMOGLOBIN 31 PG (25-34); MEAN CORPUSCULAR HGB CONC 32 G/DL (32-36); MEAN CORPUSCULAR VOLUME 94 FL (80-99); MONOCYTES # (AUTO) 1.1 X 10^3 (0.0-1.0); MONOCYTES % (AUTO) 13 % (0-12); NEUTROPHILS # (AUTO) 6.2 X 10^3 (1.8-7.8); NEUTROPHILS % (AUTO) 71 % (42-75); PLATELET COUNT 223 10^3/uL (130-400); RED BLOOD COUNT 3.89 10^6/uL (4.35-5.85); RED CELL DISTRIBUTION WIDTH 13.5 % (10.0-14.5); WHITE BLOOD COUNT 8.7 10^3/uL (4.3-11.0)
[2017-05-11 16:30] LABS: ALBUMIN 3.4 GM/DL (3.2-4.5); BILIRUBIN,TOTAL 0.6 MG/DL (0.1-1.0); CALCIUM 7.8 MG/DL (8.5-10.1); CREATININE SERUM 1.01 MG/DL (0.60-1.30); MAGNESIUM 1.7 MG/DL (1.8-2.4); POTASSIUM 3.4 MMOL/L (3.6-5.0); TOTAL PROTEIN 6.6 GM/DL (6.4-8.2)
[2017-05-11 16:35] LABS: BAND NEUTROPHILS 8 %; BASOPHILS % (MANUAL) 0 %; EOSINOPHILS % (MANUAL) 3 %; LYMPHOCYTES % (MANUAL) 16 %; MONOCYTES % (MANUAL) 5 %; NEUTROPHILS % (MANUAL) 68 %
[2017-05-11 16:36] LABS: RBC MORPH NORMAL
[2017-05-11 17:35] VITALS: BP 151/81
== END 2017-08-09 | disposition home or self-care (01) ==
LOC: SDC 15:26
PROVIDERS: ATTEND Nurse Practitioner Family
DX: R11.2 Nausea with vomiting, unspecified (principal); R19.7 Diarrhea, unspecified
CPT/HCPCS: 36415; 80053; 83735; 85007; 85027; 96365; 96375

== ENCOUNTER → 2017-05-29 | Outpatient (CLI) | payer MEDICARE, OTHER ==
[2017-05-29 10:37] LABS: CALCIUM 9.3 MG/DL (8.5-10.1); CREATININE SERUM 1.02 MG/DL (0.60-1.30); MAGNESIUM 1.8 MG/DL (1.8-2.4); PHOSPHORUS 3.8 MG/DL (2.3-4.7); POTASSIUM 4.2 MMOL/L (3.6-5.0)
[2017-05-29 10:59] LABS: FREE T4 (FREE THYROXINE) 0.86 NG/DL (0.70-1.48)
== END ==
LOC: LAB 09:56
PROVIDERS: ATTEND Surgery
DX: R53.83 Other fatigue (principal); E87.6 Hypokalemia; Z98.890 Other specified postprocedural states
CPT/HCPCS: 36415; 80048; 83735; 84100; 84439; 84443

== ENCOUNTER → 2017-08-09 | Outpatient (CLI) | payer MEDICARE, OTHER ==
--- NOTE | 2017-08-09 13:49 | Diagnostic Imaging Report ---
EXAMINATION: Lumbar spine. INDICATION: Back pain. FINDINGS: AP, lateral, and spot lateral views were obtained. There are no prior studies available for comparison. The AP view does show levoscoliosis of the lumbar spine as well as severe degenerative disc and bony disease at L2-L3. The disc space at the L2-L3 level is markedly narrowed and there is slight retrolisthesis of L2 with respect to L3. There is also at least moderate degenerative disc disease at L1-L2, L3-L4, and L5-S1. The L4-L5 disc space is fairly well maintained. There is no fracture or acute bony abnormality evident. There is no sign of a paraspinal mass. There is a vena cava filter in place overlying the right lateral aspect of the L1-L2 disc space. There is mild symmetrical sclerosis of the sacroiliac joints. IMPRESSION: 1. There is no evidence for an acute bony abnormality. 2. There is levoscoliosis of the lumbar spine and degenerative disc and bony disease evident. The L2-L3 level appears to be the most severely affected. 3. If there is clinical concern regarding spinal stenosis or nerve root encroachment, then MRI will be recommended for additional evaluation. Dictated by: Dictated on workstation # [id number]
== END ==
LOC: RAD 11:08
PROVIDERS: ATTEND Nurse Practitioner Family
DX: M51.36 Other intervertebral disc degeneration, lumbar region (principal); M41.86 Other forms of scoliosis, lumbar region
CPT/HCPCS: 72100

== ENCOUNTER → 2017-10-18 | Outpatient (CLI) | payer MEDICARE, OTHER ==
--- NOTE | 2017-10-18 10:00 | Diagnostic Imaging Report ---
PROCEDURE: MRI lumbar spine. TECHNIQUE: Multiplanar, multisequence MRI of the lumbar spine was performed without contrast. INDICATION: Chronic low back pain. No prior MRI lumbar spine studies are available for comparison. Comparison is made with plain films of lumbar spine from 08/09/2017. A left convexity lumbar scoliotic curvature is noted. There is normal lordotic curvature. There is minimal retrolisthesis of L2 on L3 and L3 on L4. The vertebral body marrow signal is normal. No acute compression fracture or geographic marrow lesion is seen. There is multilevel degenerative disc disease, greatest at L1-L2, L2-L3 and L3-L4 levels, with disc space narrowing and desiccation. The conus is unremarkable at the T12-L1 level. T12-L1: Small right para-midline disc bulge is seen but no resultant central canal stenosis is identified. No definite neuroforaminal stenosis is seen. L1-L2: Central canal is widely patent. No definite neural foraminal stenosis is seen. L2-L3: Central canal is widely patent. There is lateral recess narrowing bilaterally due to endplate osteophytes. No significant neuroforaminal stenosis is seen. L3-L4: Broad-based disc/osteophyte complex and ligamentous thickening is noted. Mild narrowing of the central canal is identified. There is significant narrowing of the lateral recesses bilaterally. There is also significant bilateral neural foraminal stenosis. L4-L5: Central canal is widely patent. There is some facet arthropathy and broad-based disc/osteophyte complex. This does result in moderate left neural foraminal narrowing. There is also a moderate left lateral recess narrowing. L5-S1: Degenerative facet changes are noted. The central canal is widely patent. Neural foramina are patent. The paraspinous tissues demonstrate small cortical cysts involving the left kidney. IMPRESSION: Lumbar spondylosis and scoliosis. There is multilevel lateral recess narrowing as well as neural foramina narrowing described level by level above. There is [id number] central canal narrowing at L3-L4 level, as described. No acute compression fracture is detected. Dictated by: Dictated on workstation # [id number]
--- NOTE | 2017-10-18 10:57 | Diagnostic Imaging Report ---
Indication: Osteoporosis screening. Comparison is made with prior exam from 12/31/2014. Bone mineral analysis of the lumbar spine and both hips was performed. The bone mineral density of the lumbar spine L2-L4 0.856 with T score -2.9. This compares with 0.941 and -2.2. Bone mineral density left femoral neck is 0.702 with T score -2.4. This compared with 0.618 and -3.0. The bone mineral density right femoral neck is 0.696 with T score -2.5 this compares with 0.670 and -2.6. Impression: Findings consistent with osteoporosis of the lumbar spine and right femoral neck with osteopenia of the left femoral neck. Dictated by: Dictated on workstation # [id number]
== END ==
LOC: RAD 08:51
PROVIDERS: ATTEND Nurse Practitioner Family
DX: M48.061 Spinal stenosis, lumbar region without neurogenic claudication (principal); Z13.820 Encounter for screening for osteoporosis; M47.817 Spondylosis without myelopathy or radiculopathy, lumbosacral region; M51.36 Other intervertebral disc degeneration, lumbar region; M41.86 Other forms of scoliosis, lumbar region
CPT/HCPCS: 72148; 77080

== ENCOUNTER → 2018-02-20 | Outpatient (CLI) | payer MEDICARE, OTHER ==
[~2018-02-20] MED LIST changes: -LOSA100T28 PO; +LOSA100T8 PO
--- NOTE | 2018-02-20 13:40 | Diagnostic Imaging Report ---
EXAMINATION: Digital mammogram INDICATION: Bilateral screening with 3D tomosynthesis and CAD. The study was compared to prior exams of 01/15/2017, 01/04/2016 and 12/29/2014. At this time there are no current complaints. The current study was also evaluated with a Computer Aided Detection (CAD) system. FINDINGS: The fibroglandular tissue in both breasts is heterogeneously dense. This does limit the sensitivity of this exam. Overall, there does not appear to have been any significant change when compared to the prior study. No primary or secondary sign of malignancy is noted. IMPRESSION: There is no radiographic evidence for malignancy. ACR BI-RADS Category 1: Negative. Result letter will be mailed to the patient. Note: At least 10% of breast cancer is not imaged by mammography. Dictated by: Dictated on workstation # [id number]
== END ==
LOC: RAD 10:28
PROVIDERS: ATTEND Nurse Practitioner Family
DX: Z12.31 Encounter for screening mammogram for malignant neoplasm of breast (principal)
CPT/HCPCS: 77067

== ENCOUNTER → 2018-07-05 | Outpatient (CLI) | payer MEDICARE, OTHER ==
[~2018-07-05] MED LIST changes: +LOSA100T57 PO; -LOSA100T8 PO; -RIVA15TA PO; +RIVA15TA2 PO
--- NOTE | 2018-07-05 17:16 | Diagnostic Imaging Report ---
INDICATION: Shortness of breath. EXAMINATION: PA and lateral chest. FINDINGS: Heart size and pulmonary vascularity are normal. Lungs are clear. There are no effusions or pneumothoraces. IMPRESSION: Negative chest. Dictated by: Dictated on workstation # [id number]
== END ==
LOC: RAD 14:34
PROVIDERS: ATTEND Nurse Practitioner Family
DX: R06.02 Shortness of breath (principal)
CPT/HCPCS: 71046

== ENCOUNTER → 2018-07-15 | Outpatient (CLI) | payer MEDICARE, OTHER ==
--- NOTE | 2018-07-15 13:18 | Diagnostic Imaging Report ---
EXAMINATION: Left ankle radiographs, 3 views. COMPARISON: None. HISTORY: 73-year-old female, fall one week ago. Left anterior ankle pain. FINDINGS: There is a calcaneal heel spur. The bones appear demineralized. There is no identified tibiotalar joint effusion. The alignment of the ankle mortise is unremarkable. There is no identified acute fracture. The joint spaces are well-preserved. IMPRESSION: 1. No identified acute fracture or bone malalignment. 2. The bones appear demineralized. 3. Calcaneal heel spur. Dictated by: Dictated on workstation # [id number]
== END ==
LOC: RAD 12:16
PROVIDERS: ATTEND Nurse Practitioner Family
DX: M85.80 Other specified disorders of bone density and structure, unspecified site (principal); M77.32 Calcaneal spur, left foot
CPT/HCPCS: 73610

== ENCOUNTER → 2019-03-24 | Outpatient (CLI) | payer MEDICARE, OTHER ==
[~2019-03-24] MED LIST changes: +OMEP-280 PO; -OMEP20CA12 PO
--- NOTE | 2019-03-24 11:34 | Diagnostic Imaging Report ---
INDICATION: Routine screening. COMPARISON: 02/20/2018 and 01/15/2017. TECHNIQUE: 2D and 3D bilateral screening mammography was performed with CAD. FINDINGS: Both breasts remain heterogeneously dense, limiting the sensitivity of mammography. There are numerous benign calcifications throughout both breasts. These appear to be parenchymal and vascular. No mass is seen. No definite malignant appearing microcalcifications are seen. The axillae are unremarkable. IMPRESSION: No mammographic features suspicious for malignancy are identified. ACR BI-RADS Category 2: Benign findings. Result letter will be mailed to the patient. Note: At least 10% of breast cancer is not imaged by mammography. Dictated by: Dictated on workstation # [id number]
== END ==
LOC: RAD 09:57
PROVIDERS: ATTEND Nurse Practitioner Family
DX: Z12.31 Encounter for screening mammogram for malignant neoplasm of breast (principal)
CPT/HCPCS: 77067

== ENCOUNTER → 2019-04-14 | Outpatient (CLI) | payer MEDICARE, OTHER ==
--- NOTE | 2019-04-14 17:16 | Diagnostic Imaging Report ---
INDICATION: Low back pain. COMPARISON: August 09, 2017. TECHNIQUE: Three radiographs of the lumbar spine dated April 14, 2019. FINDINGS: [place] left curvature of the lumbar spine is again noted. Five lumbar type vertebral bodies are present. Inferior vena cava filter is again identified, appearing stable in positioning. Mild retrolisthesis of L3 on L4. Minimal retrolisthesis of L2 on L3. These findings appear stable from prior examination. Chronic anterior wedging of L2 and L3. Chronic superior endplate deformity of L4. Advanced disc space height loss at L1-L2, L2-L3, and L3-L4, stable. Multilevel anterior osteophytes, greatest at L2. Scattered facet joint degenerative changes, greatest within the lower lumbar spine. Significant vascular calcifications. The sacroiliac joints are intact and appear symmetric. IMPRESSION: Stable-appearing examination with apex left curvature of the spine and moderate multilevel degenerative changes without acute osseous abnormality. Dictated by: Dictated on workstation # [id number]
== END ==
LOC: RAD 15:55
PROVIDERS: ATTEND Nurse Practitioner Family
DX: M47.816 Spondylosis without myelopathy or radiculopathy, lumbar region (principal)
CPT/HCPCS: 72100

== ENCOUNTER → 2019-05-02 | Outpatient (CLI) | payer MEDICARE, OTHER ==
[~2019-05-02] MED LIST changes: -OMEP-280 PO; +OMEP20CA18 PO
[2019-05-02 14:59] LABS: BASOPHILS % (AUTO) 0 % (0-10); EOSINOPHILS # (AUTO) 0.1 10^3/uL (0.0-0.3); EOSINOPHILS % (AUTO) 1 % (0-10); HEMATOCRIT 35 % (35-52); HEMOGLOBIN 11.1 G/DL (11.5-16.0); LYMPHOCYTES # (AUTO) 0.5 X 10^3 (1.0-4.0); LYMPHOCYTES % (AUTO) 7 % (12-44); MEAN CORPUSCULAR HEMOGLOBIN 34 PG (25-34); MEAN CORPUSCULAR HGB CONC 32 G/DL (32-36); MEAN CORPUSCULAR VOLUME 107 FL (80-99); MONOCYTES # (AUTO) 0.7 X 10^3 (0.0-1.0); MONOCYTES % (AUTO) 9 % (0-12); NEUTROPHILS # (AUTO) 6.5 X 10^3 (1.8-7.8); NEUTROPHILS % (AUTO) 83 % (42-75); PLATELET COUNT 220 10^3/uL (130-400); RED CELL DISTRIBUTION WIDTH 14.6 % (10.0-14.5); WHITE BLOOD COUNT 7.9 10^3/uL (4.3-11.0)
[2019-05-02 15:16] LABS: ALBUMIN 3.8 GM/DL (3.2-4.5); BILIRUBIN,TOTAL 0.8 MG/DL (0.1-1.0); CALCIUM 9.5 MG/DL (8.5-10.1); CREATININE SERUM 1.09 MG/DL (0.60-1.30); POTASSIUM 3.8 MMOL/L (3.6-5.0); TOTAL PROTEIN 6.7 GM/DL (6.4-8.2)
[2019-05-02 15:23] LABS: NEUTROPHILS % (MANUAL) 84 %
[2019-05-02 15:24] LABS: BAND NEUTROPHILS 0 %; EOSINOPHILS % (MANUAL) 1 %; LYMPHOCYTES % (MANUAL) 4 %; MONOCYTES % (MANUAL) 11 %; RBC MORPH NORMAL
== END ==
LOC: LAB 14:43
PROVIDERS: ATTEND Nurse Practitioner Family
DX: I50.9 Heart failure, unspecified (principal)
CPT/HCPCS: 36415; 80053; 82607; 83880; 85007; 85027